=== PATIENT | female | born 1940 ===

== ENCOUNTER → 2018-01-24 | Outpatient (CLI) | payer MEDICARE ==
[~2018-01-24] MED LIST: ALLO300 PO; ASPI325 PO; ASPI81CH PO; Armour Thyroid15 MG PO; BUME2 PO; Bactrim Ds Tab1 EACH PO; CHOL10002 PO; CLON.2 PO; CLOP75 PO; FAMO20 PO; FISH1000 PO; METO25 PO; NAPR220 PO; OLME40; VERA120ERB PO; Zofran Odt4 MG PO
[2018-01-24 18:35] LABS: Protein, Urine Quantitative 129.7 mg/dL (0.0-11.9)
== END | disposition home or self-care (01) ==
LOC: LAB SRC 14:12
PROVIDERS: Internal Medicine Nephrology
DX: N18.4 Chronic kidney disease, stage 4 (severe) (principal); E87.70 Fluid overload, unspecified; R60.0 Localized edema; R80.9 Proteinuria, unspecified
CPT/HCPCS: 81050; 82043; 84156

== ENCOUNTER 2018-03-19 20:54 | Emergency (ER) | payer MEDICARE ==
[~2018-03-19] VITALS: Ht 165.1 cm; Wt 104.3 kg
[~2018-03-19 20:54] MED LIST changes: -ASPI81CH PO; -Bactrim Ds Tab1 EACH PO; -CLOP75 PO; -Zofran Odt4 MG PO
[2018-03-19] MEDS ORDERED: ASPI81CH PO (21:22)
[2018-03-19] MEDS ORDERED: CLOP75 PO (21:22)
[2018-03-19 22:15] LABS: BASOPHILS ABSOLUTE AUTO 0.02 K/mm3 (0.00-0.23); BASOPHILS PERCENT AUTO 0 % (0-2); EOSINOPHILS ABSOLUTE AUTO 0.02 K/mm3 (0.00-0.68); EOSINOPHILS PERCENT AUTO 0 % (0-6); Hematocrit 37.2 % (33.0-51.0); Hemoglobin 12.3 g/dL (11.5-16.0); IMMATURE GRAN ABSOLUTE AUTO 0.04 K/mm3 (0.00-0.10); IMMATURE GRAN PERCENT AUTO 1 % (0-1); LYMPHOCYTES PERCENT AUTO 9 % (21-46); MONOCYTES ABSOLUTE AUTO 0.83 K/mm3 (0.16-1.47); MONOCYTES PERCENT AUTO 11 % (4-13); Mean Corpuscular HGB 31.6 pg (26.0-34.0); Mean Corpuscular HGB Conc 33.1 g/dL (31.5-36.5); Mean Corpuscular Volume 96 fL (80-100); Mean Platelet Volume 10.6 fL (9.1-12.4); NEUTROPHILS ABSOLUTE AUTO 6.16 K/mm3 (1.96-9.15); NEUTROPHILS PERCENT AUTO 79 % (41-73); Platelet Count 149 K/mm3 (150-400); RDW Coefficient Variation 14.5 % (11.7-14.2); RDW Standard Deviation 50.4 fL (35.1-46.3); Red Blood Cell Count 3.89 M/mm3 (3.80-5.20); White Blood Cell Count 7.77 K/mm3 (4.00-11.30)
[2018-03-19 22:15] LABS: Calcium, Ionized (POC) 1.02 mmol/L (1.10-1.46); Chloride (POC) 92 mmol/L (98-108); Creatinine (POC) 2.4 mg/dL (0.6-1.0); Glucose (ISTAT POC) 138 mg/dL (70-99); Hemoglobin (POC) 13.3 g/dL (12.0-16.0); Potassium (POC) 3.5 mmol/L (3.5-5.5); Sodium (POC) 134 mmol/L (135-148); Total CO2 (POC) 27 mmol/L (21-32)
[2018-03-19 22:31] LABS: Albumin, Blood 3.2 g/dL (3.4-5.0); Albumin/Globulin Ratio 0.7 (0.8-1.8); Bilirubin, Total 1.3 mg/dL (0.1-1.0); Bun/Creatinine Ratio 13.7 (12.0-20.0); Calcium, Blood 8.4 mg/dL (8.5-10.1); Creatinine, Blood 2.33 mg/dL (0.40-1.00); Globulin, Blood 4.8 g/dL (2.2-4.0); Potassium, Blood 3.5 mmol/L (3.5-5.5)
[2018-03-20] MEDS ORDERED: Zofran Odt4 MG PO (01:45)
== END 2018-03-20 01:51 | disposition home or self-care (01) ==
LOC: ER 20:54
PROVIDERS: Emergency Medicine
DX: R11.2 Nausea with vomiting, unspecified (principal); N18.6 End stage renal disease; Z99.2 Dependence on renal dialysis; Z88.1 Allergy status to other antibiotic agents; Z79.899 Other long term (current) drug therapy; Z79.82 Long term (current) use of aspirin; Z87.891 Personal history of nicotine dependence
CPT/HCPCS: 36415; 76705; 80047; 80053; 83690; 85014; 85025; 93005; 93010; 96361; 96374; 99284; J2405; J7030

== ENCOUNTER → 2018-03-22 | Outpatient (CLI) | payer MEDICARE ==
[~2018-03-22] MED LIST changes: +ASPI81CH PO; +CLOP75 PO; +Zofran Odt4 MG PO
[2018-03-22 13:39] LABS: Hematocrit 36.2 % (33.0-51.0); Hemoglobin 11.8 g/dL (11.5-16.0)
[2018-03-22 15:03] LABS: Albumin/Globulin Ratio 0.6 (0.8-1.8); Bilirubin, Direct 0.4 mg/dL (0.0-0.3); Bilirubin, Indirect 0.6 mg/dL (0.1-0.7); Globulin, Blood 4.7 g/dL (2.2-4.0); Total Protein, Blood 7.7 g/dL (6.4-8.2)
== END | disposition home or self-care (01) ==
LOC: LAB 13:29 → LAB SHORT 13:29
PROVIDERS: Internal Medicine Nephrology
DX: R10.9 Unspecified abdominal pain (principal)
CPT/HCPCS: 80076; 82150; 83690; 85014; 85018

== ENCOUNTER 2018-11-09 00:20 | Day surgery (SDC) | payer MEDICARE ==
[~2018-11-09 00:20] MED LIST changes: +Bactrim Ds Tab1 EACH PO
== END 2018-11-09 22:38 | disposition home or self-care (01) ==
LOC: WOUND 00:20
DX: L97.522 Non-pressure chronic ulcer of other part of left foot with fat layer exposed (principal); S81.801D Unspecified open wound, right lower leg, subsequent encounter; S81.802D Unspecified open wound, left lower leg, subsequent encounter; R60.0 Localized edema

== ENCOUNTER 2018-11-23 09:15 | Day surgery (SDC) | payer MEDICARE | END 2018-11-23 22:39 | disposition home or self-care (01) | LOC: WOUND 09:15 | DX: L97.522 Non-pressure chronic ulcer of other part of left foot with fat layer exposed (principal); S61.401A Unspecified open wound of right hand, initial encounter; S81.801D Unspecified open wound, right lower leg, subsequent encounter; S81.802D Unspecified open wound, left lower leg, subsequent encounter; S80.821A Blister (nonthermal), right lower leg, initial encounter; Z91.81 History of falling; R60.0 Localized edema; N18.4 Chronic kidney disease, stage 4 (severe) ==

== ENCOUNTER 2018-11-30 00:29 | Day surgery (SDC) | payer MEDICARE ==
[2018-11-30] MEDS ORDERED: OXYC10ER PO (19:32)
== END 2018-11-30 22:37 | disposition home or self-care (01) ==
LOC: WOUND 00:29
DX: L97.522 Non-pressure chronic ulcer of other part of left foot with fat layer exposed (principal); S81.802D Unspecified open wound, left lower leg, subsequent encounter; S81.801D Unspecified open wound, right lower leg, subsequent encounter; S61.401D Unspecified open wound of right hand, subsequent encounter; S80.821D Blister (nonthermal), right lower leg, subsequent encounter; R60.0 Localized edema; N18.4 Chronic kidney disease, stage 4 (severe); Z91.81 History of falling; Z87.891 Personal history of nicotine dependence

== ENCOUNTER 2018-11-30 16:47 | Observation (INO) | payer MEDICARE ==
[~2018-11-30] VITALS: Ht 160 cm; Wt 238.0 kg
[2018-11-30 17:28] LABS: BASOPHILS ABSOLUTE AUTO 0.05 K/mm3 (0.00-0.23); BASOPHILS PERCENT AUTO 1 % (0-2); EOSINOPHILS ABSOLUTE AUTO 0.12 K/mm3 (0.00-0.68); EOSINOPHILS PERCENT AUTO 3 % (0-6); IMMATURE GRAN ABSOLUTE AUTO 0.01 K/mm3 (0.00-0.10); IMMATURE GRAN PERCENT AUTO 0 % (0-1); LYMPHOCYTES ABSOLUTE AUTO 0.65 K/mm3 (0.84-5.20); LYMPHOCYTES PERCENT AUTO 14 % (21-46); MONOCYTES ABSOLUTE AUTO 0.72 K/mm3 (0.16-1.47); MONOCYTES PERCENT AUTO 16 % (4-13); Mean Corpuscular HGB 34.4 pg (26.0-34.0); Mean Corpuscular HGB Conc 32.4 g/dL (31.5-36.5); Mean Corpuscular Volume 106 fL (80-100); Mean Platelet Volume 10.3 fL (9.1-12.4); NEUTROPHILS ABSOLUTE AUTO 3.04 K/mm3 (1.96-9.15); NEUTROPHILS PERCENT AUTO 66 % (41-73); Platelet Count 140 K/mm3 (150-400); RDW Coefficient Variation 15.6 % (11.7-14.2); RDW Standard Deviation 61.1 fL (35.1-46.3); White Blood Cell Count 4.59 K/mm3 (4.00-11.30)
[2018-11-30 18:01] LABS: Albumin, Blood 3.5 g/dL (3.4-5.0); Albumin/Globulin Ratio 0.7 (0.8-1.8); Bilirubin, Total 1.8 mg/dL (0.1-1.0); Bun/Creatinine Ratio 9.2 (12.0-20.0); Calcium, Blood 8.5 mg/dL (8.5-10.1); Creatinine, Blood 3.69 mg/dL (0.40-1.00); Globulin, Blood 4.8 g/dL (2.2-4.0); Total Protein, Blood 8.3 g/dL (6.4-8.2); Troponin I 0.121 ng/mL (0.000-0.040)
[2018-11-30] MEDS ORDERED: OXYC10ER PO (19:32)
[2018-12-01 05:43] LABS: Hematocrit 31.7 % (33.0-51.0); Hemoglobin 10.3 g/dL (11.5-16.0); Mean Corpuscular HGB 35.6 pg (26.0-34.0); Mean Corpuscular HGB Conc 32.5 g/dL (31.5-36.5); Mean Platelet Volume 10.8 fL (9.1-12.4); Platelet Count 127 K/mm3 (150-400); RDW Coefficient Variation 15.7 % (11.7-14.2); RDW Standard Deviation 63.7 fL (35.1-46.3); Red Blood Cell Count 2.89 M/mm3 (3.80-5.20); White Blood Cell Count 4.47 K/mm3 (4.00-11.30)
[2018-12-01 05:51] LABS: Mean Corpuscular Volume 110 fL (80-100)
[2018-12-01 05:58] LABS: Bun/Creatinine Ratio 10.1 (12.0-20.0); Calcium, Blood 8.4 mg/dL (8.5-10.1); Creatinine, Blood 3.88 mg/dL (0.40-1.00); Magnesium, Blood 2.6 mg/dL (1.6-2.4); Potassium, Blood 4.3 mmol/L (3.5-5.5)
--- NOTE | 2018-12-01 12:03 | NUR ---
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 DISCHARGE INSTRUCTIONS PROVIDED. PT REP UNDERSTANDING THOSE INSTRUCTIONS INCLUDING FU WITH PCP 7-10 DAYS. IV DC'D.
== END 2018-12-01 10:45 | disposition home or self-care (01) ==
LOC: ER 16:47 → SURS 16:48
PROVIDERS: Nurse Practitioner Acute Care; Physician Assistant; ADMIT Internal Medicine
DX: R07.89 Other chest pain (principal); I13.2 Hypertensive heart and chronic kidney disease with heart failure and with stage 5 chronic kidney disease, or end stage renal disease; I50.22 Chronic systolic (congestive) heart failure; N18.6 End stage renal disease; I42.9 Cardiomyopathy, unspecified; K21.9 Gastro-esophageal reflux disease without esophagitis; E03.9 Hypothyroidism, unspecified; S32.10XA Unspecified fracture of sacrum, initial encounter for closed fracture; I11.0 Hypertensive heart disease with heart failure; I25.10 Atherosclerotic heart disease of native coronary artery without angina pectoris; M19.90 Unspecified osteoarthritis, unspecified site; J44.9 Chronic obstructive pulmonary disease, unspecified; Z87.891 Personal history of nicotine dependence; Z79.02 Long term (current) use of antithrombotics/antiplatelets; Z95.5 Presence of coronary angioplasty implant and graft; Z79.82 Long term (current) use of aspirin; Z79.899 Other long term (current) drug therapy; Z95.2 Presence of prosthetic heart valve; W19.XXXA Unspecified fall, initial encounter; L97.522 Non-pressure chronic ulcer of other part of left foot with fat layer exposed; S81.802D Unspecified open wound, left lower leg, subsequent encounter; S81.801D Unspecified open wound, right lower leg, subsequent encounter; S61.401D Unspecified open wound of right hand, subsequent encounter; S80.821D Blister (nonthermal), right lower leg, subsequent encounter; R60.0 Localized edema; N18.4 Chronic kidney disease, stage 4 (severe); Z91.81 History of falling
CPT/HCPCS: 36415; 71046; 72220; 80048; 80053; 83735; 84484; 85025; 85027; 93005; 93010; 93306; 99285-25; G0378

== ENCOUNTER 2018-12-07 00:16 | Day surgery (SDC) | payer MEDICARE ==
[~2018-12-07 00:16] MED LIST changes: +OXYC10ER PO
== END 2018-12-07 22:35 | disposition home or self-care (01) ==
LOC: WOUND 00:16
DX: L97.522 Non-pressure chronic ulcer of other part of left foot with fat layer exposed (principal); S81.802D Unspecified open wound, left lower leg, subsequent encounter; S81.801D Unspecified open wound, right lower leg, subsequent encounter; S61.401D Unspecified open wound of right hand, subsequent encounter; S80.821D Blister (nonthermal), right lower leg, subsequent encounter; R60.0 Localized edema; N18.4 Chronic kidney disease, stage 4 (severe); Z91.81 History of falling; Z87.891 Personal history of nicotine dependence

== ENCOUNTER 2018-12-28 14:30 | Day surgery (SDC) | payer MEDICARE | END 2018-12-28 22:38 | disposition home or self-care (01) | LOC: WOUND 14:30 | DX: L97.512 Non-pressure chronic ulcer of other part of right foot with fat layer exposed (principal); S61.401A Unspecified open wound of right hand, initial encounter; Z91.81 History of falling; R60.0 Localized edema; N18.4 Chronic kidney disease, stage 4 (severe) | CPT/HCPCS: G0463 ==

== ENCOUNTER → 2019-05-23 | Outpatient (CLI) | payer MEDICARE, OTHER ==
[2019-05-23 08:12] LABS: CHOL/HDL RATIO 2.6; Cholesterol 98 mg/dL (50-200); HDL Cholesterol 37 mg/dL (>39); LDL/HDL RATIO 1.3; Low Density Lipoprotein Chol 47 mg/dL (0-110); Triglycerides 71 mg/dL (30-160); Very Low Density Lipoprot Chol 14 mg/dL (6-32)
== END | disposition home or self-care (01) ==
LOC: LAB SHORT 07:39 → LAB DAV 07:39
PROVIDERS: Internal Medicine Nephrology
DX: N18.6 End stage renal disease (principal)
CPT/HCPCS: 80061

== ENCOUNTER → 2019-06-13 | Outpatient (CLI) | payer MEDICARE, OTHER | END | disposition home or self-care (01) | LOC: LAB DAV 07:40 | DX: N18.6 End stage renal disease (principal); R53.82 Chronic fatigue, unspecified | CPT/HCPCS: 84443; 85018 ==

== ENCOUNTER 2019-08-18 03:44 | Emergency (ER) | payer MEDICARE, OTHER ==
[~2019-08-18] VITALS: Ht 160 cm; Wt 109.8 kg
[2019-08-18 04:37] LABS: BASOPHILS ABSOLUTE AUTO 0.04 K/mm3 (0.00-0.23); BASOPHILS PERCENT AUTO 1 % (0-2); EOSINOPHILS ABSOLUTE AUTO 0.13 K/mm3 (0.00-0.68); EOSINOPHILS PERCENT AUTO 2 % (0-6); Hematocrit 32.9 % (33.0-51.0); Hemoglobin 10.7 g/dL (11.5-16.0); IMMATURE GRAN ABSOLUTE AUTO 0.02 K/mm3 (0.00-0.10); IMMATURE GRAN PERCENT AUTO 0 % (0-1); LYMPHOCYTES ABSOLUTE AUTO 0.99 K/mm3 (0.84-5.20); LYMPHOCYTES PERCENT AUTO 17 % (21-46); MONOCYTES ABSOLUTE AUTO 0.97 K/mm3 (0.16-1.47); MONOCYTES PERCENT AUTO 17 % (4-13); Mean Corpuscular HGB 35.8 pg (26.0-34.0); Mean Corpuscular HGB Conc 32.5 g/dL (31.5-36.5); Mean Corpuscular Volume 110 fL (80-100); Mean Platelet Volume 10.7 fL (9.1-12.4); NEUTROPHILS ABSOLUTE AUTO 3.62 K/mm3 (1.96-9.15); NEUTROPHILS PERCENT AUTO 63 % (41-73); Platelet Count 128 K/mm3 (150-400); RDW Coefficient Variation 14.3 % (11.7-14.2); RDW Standard Deviation 57.9 fL (35.1-46.3); Red Blood Cell Count 2.99 M/mm3 (3.80-5.20); White Blood Cell Count 5.77 K/mm3 (4.00-11.30)
[2019-08-18 04:58] LABS: Albumin, Blood 3.3 g/dL (3.4-5.0); Albumin/Globulin Ratio 0.6 (0.8-1.8); Bilirubin, Total 1.1 mg/dL (0.1-1.0); Bun/Creatinine Ratio 10.5 (12.0-20.0); Calcium, Blood 8.9 mg/dL (8.5-10.1); Creatinine, Blood 4.78 mg/dL (0.40-1.00); Globulin, Blood 5.3 g/dL (2.2-4.0); Magnesium, Blood 2.4 mg/dL (1.6-2.4); Potassium, Blood 4.7 mmol/L (3.5-5.5); Total Protein, Blood 8.6 g/dL (6.4-8.2)
[2019-08-18 05:17] LABS: Free Thyroxine 1.13 ng/dL (0.70-1.60); Thyroid Stimulating Hormone 5.58 uIU/mL (0.360-4.800); Triiodothyronine, Free 2.4 pg/mL (2.18-3.98)
== END 2019-08-18 06:30 | disposition home or self-care (01) ==
LOC: ER 03:44
PROVIDERS: Emergency Medicine
DX: I48.91 Unspecified atrial fibrillation (principal); Z88.1 Allergy status to other antibiotic agents; Z79.899 Other long term (current) drug therapy; Z79.82 Long term (current) use of aspirin; Z87.891 Personal history of nicotine dependence
CPT/HCPCS: 36415; 71045; 80053; 83735; 83880; 84439; 84443; 84481; 85025; 93005; 93010; 96374; 96376; 99285-25